=== PATIENT | male | born 1950 | race Caucasian/White ===

== ENCOUNTER 2018-06-29 11:32 | Emergency (ER) | payer MEDICARE, MEDICAID ==
[~2018-06-29] VITALS: Ht 182.9 cm; Wt 70.1 kg
[2018-06-29] MEDS ORDERED: DEXAMETHASONE 4 MG TABLET PO ONE (12:00)
[2018-06-29] MEDS ORDERED: CEFAZOLIN 1,000 MG IM ONE (12:00)
[2018-06-29] MEDS ORDERED: SULFAMETH./TRIMETHOPRIM DS 800MG/160MG TABLET PO ONE (12:00)
[2018-06-29] MEDS ORDERED: CEFAZOLIN 1,000 MG ONE (12:08)
[2018-06-29] MEDS ORDERED: DEXAMETHASONE 4 MG/ML, 1ML ONE (12:08)
[2018-06-29] MEDS ORDERED: SULFAMETH./TRIMETHOPRIM DS 800MG/160MG TABLET ONE (12:09)
[2018-06-29 12:48] VITALS: BP 132/68
== END 2018-06-29 12:49 | disposition home or self-care (01) ==
LOC: ED 11:55
DX: L03.113 Cellulitis of right upper limb (principal); F17.200 Nicotine dependence, unspecified, uncomplicated
CPT/HCPCS: 96372; 99283; J0690